=== PATIENT | female | born 1980 | race Caucasian/White ===

== ENCOUNTER 2020-01-20 10:53 | Emergency (ER) | payer OTHER, SELFPAY ==
--- NOTE | 2020-01-20 11:00 | ED.DENTAL ---
HPI - Dental/Oral General Chief complaint: Dental/Oral Stated complaint: Toothache/Swollen jaw Time Seen by Provider: 01/20/20 11:00 Source: patient and RN notes reviewed Mode of arrival: ambulatory Limitations: no limitations History of Present Illness HPI Narrative: 39-year-old female presents with concern for dental pain, jaw swelling. Reports history of dental caries, broken teeth. Reports dental pain for approximately 2 days, jaw swelling started yesterday. Reports she has a dental appointment on February 02. Denies foul taste in her mouth, fever, headache, sinus pain. MD Complaint: tooth pain Location: Tooth # (21) Related Data Allergies Allergy/AdvReac Type Severity Reaction Status Date / Time codeine Allergy Hives Verified 01/20/20 10:57 Review of Systems Review of Systems: Narrative: CONSTITUTIONAL: Denies malaise, chills, sweats, or fever. EYES: Denies visual changes, redness, or discharge. ENT: Denies rhinorrhea, congestion, sinus pain, otalgia or sore throat. Reports left lower dental pain, jaw swelling CARDIOVASCULAR: Denies chest pain, palpitations RESPIRATORY: Denies cough or dyspnea. SKIN: Denies rash or itching. MUSCULOSKELETAL: Denies myalgia. NEUROLOGIC: Denies headache. All systems reviewed & are unremarkable except as noted in HPI and below PMFSH Social History Social History Gender identity (if verbalized by the patient): Female Comments At time of signature, agree with nursing past medical, surgical, social and family history. There is no relevant family history pertinent to the presenting complaint Exam Narrative: Exam Narrative: GENERAL: Well-appearing, well-nourished, and in no acute distress. HEAD: Normocephalic, atraumatic. EYES: PERRLA, conjunctivae clear, and EOMI. No nystagmus. ENT: Nares clear. Mucous membranes moist. Oropharynx without erythema or lesions. No drooling NECK: Supple. CHEST: No respiratory distress. Clear to auscultation. No bony deformities, no asymmetry. Speaks in full sentences. HEART: Regular rate and rhythm. No murmur heard. SKIN: Warm, dry, no rash. NEURO: Alert and oriented x3. PSYCH: Normal mood and affect Course Course Emergency Course: Patient is aware of diagnosis, understands and agrees to treatment plan. Anticipatory guidance given. Patient agrees to follow-up as directed and is aware of reasons to seek care at the emergency department. Portions of this record may have been created with voice recognition software Vital Signs Vital signs: Vital Signs Temperature 97.7 F 01/20/20 11:07 Pulse Rate 91 01/20/20 11:07 Respiratory Rate 16 01/20/20 11:07 Blood Pressure 132/63 01/20/20 11:07 Pulse Oximetry 98 01/20/20 11:07 Temperature 97.7 F 01/20/20 11:07 Pulse Rate 91 01/20/20 11:07 Respiratory Rate 16 01/20/20 11:07 Blood Pressure 132/63 01/20/20 11:07 Pulse Oximetry 98 01/20/20 11:07 Reviewed. Patient reports history of hypertension MDM - Dental/Oral MDM Narrative Medical decision making narrative: Patients pain and complaint coupled with physical findings are consistant with dentalgia. There are no focal signs of space occupying lesions that are compromising to the airway; no dysphagia, odynophagia, dysphonia, or dyspnea. No uvular deviation or soft palate edema. Patient is non-toxic appearing. The floor of the mouth is soft with no signs of Robbie's Angina; no induration below mandible, no neck pain. Patient is without trismus or drooling and able to swallow secretions. Patient is felt appropriate for discharge home with dental follow up. Differential Diagnosis Differential diagnosis: Likely gingival abscess, dental caries, toothache, dental abscess and fracture of tooth Critical Care Time Critical Care Time Critical Care Time: No Discharge Plan Discharge Clinical Impression: Dental abscess Patient Disposition: Home, Self-Care Condition: Stable Instructions: Antibiotic Form, Dental Abscess
[2020-01-20 11:07] VITALS: BP 132/63; PULSE 91; RESP 16; TEMP 36.5; O2SAT 98
== END 2020-01-20 11:18 | disposition home or self-care (01) ==
PROVIDERS: Emergency Provider Nurse Practitioner
DX: K04.7 Periapical abscess without sinus (principal)
CPT/HCPCS: 99213; G0463

== ENCOUNTER 2022-07-23 18:37 | Emergency (ER) | payer OTHER, SELFPAY ==
[2022-07-23 18:49] VITALS: BP 128/69; PULSE 84; RESP 16; TEMP 36.1; O2SAT 100
--- NOTE | 2022-07-23 19:06 | ED.FEMALEGU ---
HPI - Female Genitourinary General Chief complaint: Urogenital-Female Stated complaint: Vaginal Problems Time Seen by Provider: 07/23/22 19:06 Source: patient, RN notes reviewed and old records reviewed Mode of arrival: ambulatory Limitations: no limitations History of Present Illness HPI Narrative: 41-year-old female presents to the [facility] with complaints of vaginal issues. Reports vaginal irritation, thick discharge. Denies any abdominal pain. No shortness of breath. Related Data Allergies Allergy/AdvReac Type Severity Reaction Status Date / Time codeine Allergy Hives Verified 07/23/22 19:13 Review of Systems Review of Systems: All systems reviewed & are unremarkable except as noted in HPI and below Constitutional: Constitutional: Reports no additional constitutional complaints, Denies chills and Denies fatigue Eyes: Eyes: Reports no additional eye complaints ENT: Reports system reviewed and no additional complaints, except as documented Cardiovascular: Cardiovascular: Reports no additional cardiovascular complaints Respiratory: Respiratory: Reports no additional respiratory complaints Gastrointestinal: Gastrointestinal: Reports no additional gastrointestinal complaints, Denies abdominal pain, Denies diarrhea, Denies nausea and Denies vomiting Genitourinary: Genitourinary: Reports as per HPI, Reports hematuria, Denies dysuria, Denies flank pain, Reports vaginal discharge, Reports vaginal odor and Reports vaginal pruritus Musculoskeletal: Musculoskeletal: Reports no additional musculoskeletal complaints and Denies back pain Integumentary/Breasts: Skin/Breast: Reports system reviewed and no additional complaints, except as docu Neurologic: Reports system reviewed and no additional complaints, except as documented Psychiatric: Psychiatric: Reports no additional psychiatric complaints Endocrine: Endocrine: Denies fatigue Allergic/Immunologic: Allergic/Immunologic: Reports no additional allergic/immunologic complaints PMFSH Social History Social History Gender identity (if verbalized by the patient): Female Comments At the time of my signature, I reviewed and agree with the nursing past medical, surgical, social, and family history. There is no relevant family history pertinent to the patient complaint. Exam Const: General: healthy appearing, no acute distress and alert Nutritional Appearance: well nourished Orientation/consciousness: patient oriented x3 Limitations: no limitations HENMT: Head: normal to inspection Eyes: Conjunctivae: conjunctivae normal Pupils: Equal, round and reactive pupils present Neck: Neck: normal visual inspection, no lymphadenopathy and no meningeal signs Chest: Chest palpation & inspection: normal inspection of the chest and abnormal inspection of the chest Resp: Effort & Inspection: normal respiratory effort Auscultation: clear to auscultation bilaterally Cardio: Rate: regular rate Rhythm: regular rhythm GI: GI Palp: Yes Soft to palpation and No Tenderness to palpation present (GI) : General: Yes no CVA tenderness External Female Exam: normal external appearance Speculum Exam - Vagina: erythematous, no lacerations and No vaginal bleeding Speculum Exam - Cervix: Cervical os closed, Abnormal cervical discharge present yellow and malodorous, no lesions and nontender Back/Spine/Pelvis: Back: no CVA tenderness Skin: General skin exam: normal color Rashes: no rashes Wounds: no wounds Neuro: General: patient oriented x3, moves all extremities, no meningeal signs and no focal motor deficits Cranial nerves: Yes Equal, round and reactive pupils present Speech: normal speech Gait exam (Neuro): Normal gait present Extrem: General: normal to inspection Psych: Mental Status: mental status grossly normal Affect: normal affect Attitude: cooperative Thought content: Yes Normal thought content present Judgement: Good judgement present (Psych) Course Course Shana
[2022-07-23] MEDS: cefTRIAXone 500 MG, LIDOCAINE HCL 1% LOCAL INJ 1 ML IM (19:42)
== END 2022-07-23 20:11 | disposition home or self-care (01) ==
PROVIDERS: Emergency Provider Nurse Practitioner
DX: Z20.2 Contact with and (suspected) exposure to infections with a predominantly sexual mode of transmission (principal)
CPT/HCPCS: 81003; 81025; 87070; 87491; 87591; 87661; 96372; 99214; G0463; J0696

== ENCOUNTER 2022-10-29 15:29 | Emergency (ER) | payer OTHER, SELFPAY ==
--- NOTE | ~2022-10-29 | XR_ITS ---
EXAM: XR knee LT min 4V DATE: 10/29/2022 16:21 HISTORY: KNEE PAIN, NO INJURY . COMPARISON: None available. FINDINGS: Normal mineralization. No fracture or dislocation. No lytic or blastic lesion. Moderate me dial and lateral joint space narrowing. Mild tricompartmental osteophytosis. Chondrocalcinosis. No er osion or periosteal change. Soft tissues within normal limits. Moderate volume joint fluid. IMPRESSION: Moderate tricompartmental arthritic changes of the knee. Moderate joint effusion. Reviewed, dictated and finalized at location K. [employer] HELPER IMPRESSION: Moderate tricompartmental arthritic changes of the knee. Moderate j oint effusion.
[2022-10-29 15:40] VITALS: BP 141/47; PULSE 83; RESP 12; TEMP 36.3; O2SAT 100
--- NOTE | 2022-10-29 15:49 | ED.LOWEXIN ---
HPI - Extremity Injury (Lower) General Chief Complaint: Extremity Injury, Lower Stated Complaint: Left Knee Pain Time Seen by Provider: 10/29/22 15:49 Source: patient, RN notes reviewed and old records reviewed Mode of arrival: ambulatory Limitations: no limitations History of Present Illness HPI Narrative: 42-year-old female presents to the [facility] complaints of left knee pain since yesterday. Unknown injury. States that she worked all night and woke up this morning with worsening pain. Bruise noted to the upper aspect of the anterior knee with minor amount of swelling. Pain with movement. Onset (ago): day(s) (1) Related Data Allergies Allergy/AdvReac Type Severity Reaction Status Date / Time codeine Allergy Hives Verified 10/29/22 15:46 Review of Systems Review of Systems: All systems reviewed & are unremarkable except as noted in HPI and below Constitutional: Constitutional: Reports no additional constitutional complaints Eyes: Eyes: Reports no additional eye complaints ENT: Reports system reviewed and no additional complaints, except as documented Cardiovascular: Cardiovascular: Reports no additional cardiovascular complaints, Denies chest pain and Denies dyspnea Respiratory: Respiratory: Reports no additional respiratory complaints, Denies chest congestion, Denies cough and Denies dyspnea Gastrointestinal: Gastrointestinal: Reports no additional gastrointestinal complaints, Denies abdominal pain, Denies nausea and Denies vomiting Musculoskeletal: Musculoskeletal: Reports as per HPI, Reports arthralgias and Reports joint swelling (Left knee) Integumentary/Breasts: Skin/Breast: Reports system reviewed and no additional complaints, except as docu Neurologic: Reports system reviewed and no additional complaints, except as documented Psychiatric: Psychiatric: Reports no additional psychiatric complaints Allergic/Immunologic: Allergic/Immunologic: Reports no additional allergic/immunologic complaints [facility] Social History Social History Gender identity (if verbalized by the patient): Female Comments At the time of my signature, I reviewed and agree with the nursing past medical, surgical, social, and family history. There is no relevant family history pertinent to the patient complaint. Exam Const: General: cooperative, healthy appearing, comfortable, no acute distress, well developed, alert, average body habitus and well nourished Nutritional Appearance: average body habitus and well nourished Orientation/consciousness: patient oriented x3 Limitations: no limitations HENMT: Head: normal to inspection Ears: hearing grossly normal bilaterally and external ears normal Face/Nose/Sinus: Normal external nose present, Normal nares present, Normal nasal mucous membranes and turbinates present and normal facial exam Face and sinus: normal facial exam Mouth: Yes Normal oral and palatal mucosa present, Yes lip normal and Yes moist mucous membranes Eyes: General: appearance normal, both eyes and all related structures Alignment and Position: alignment normal Periorbital: periorbital findings normal Conjunctivae: conjunctivae normal Pupils: Equal, round and reactive pupils present EOM: EOMs intact bilaterally Neck: Neck: normal visual inspection, full ROM, no lymphadenopathy and no meningeal signs Chest: Chest palpation & inspection: normal inspection of the chest Resp: Effort & Inspection: normal respiratory effort and able to speak in complete sentences Auscultation: clear to auscultation bilaterally, no crackles, no rales, no rhonchi and no wheezes Cardio: Rate: regular rate Rhythm: regular rhythm GI: Inspection: normal to inspection GI Palp: No abdominal tenderness Back/Spine/Pelvis: Cervical Spine: cervical ROM normal Thoracic/Lumbar Spine: No thoracic spinal tenderness Skin: General skin exam: normal color and no rashes or lesions noted Lesions
== END 2022-10-29 16:45 | disposition home or self-care (01) ==
PROVIDERS: Emergency Provider Nurse Practitioner
DX: M25.462 Effusion, left knee (principal); M17.12 Unilateral primary osteoarthritis, left knee; S80.02XA Contusion of left knee, initial encounter; X58.XXXA Exposure to other specified factors, initial encounter
CPT/HCPCS: 73564; 99213; G0463

== ENCOUNTER 2023-10-28 11:30 | Emergency (ER) | payer OTHER, SELFPAY ==
--- NOTE | 2023-10-28 11:37 | ED.DENTAL ---
HPI - Dental/Oral General Chief complaint: Dental/Oral Stated complaint: Dental Pain Time Seen by Provider: 10/28/23 11:37 Source: patient Mode of arrival: ambulatory Limitations: no limitations History of Present Illness HPI Narrative: Sabina is a 43-year-old female patient presenting to clinic today with complaints of dental pain to the bilateral lower posterior teeth. She reports the symptoms and for 2-3 days. She denies any fever chills. Reports that she has very poor dentition. Related Data Allergies Allergy/AdvReac Type Severity Reaction Status Date / Time codeine Allergy Hives Verified 10/29/22 15:46 Review of Systems Review of Systems: Pertinent positives per HPI. Patient denies any fever, chills, rash, headache, visual changes, dizziness, cough, shortness of breath, chest pain, palpitations, nausea, vomiting, diarrhea, constipation, abdominal pain, or any urinary issues. PMFSH Social History Social History Gender identity (if verbalized by the patient): Female Comments At the time of my signature, I reviewed and agree with the nursing past medical, surgical, social, and family history. There is no relevant family history pertinent to the patient complaint. Exam Narrative: General: Well-developed, well nourished, in no apparent distress Head: Normocephalic, atraumatic Eyes: Pupils equally round and reactive to light bilaterally, EOM intact, sclera and conjunctive clear, no discharge, lids normal Ears: TMs intact and clear, ear canals clear, no drainage, grossly hearing normal. Nose: Nares patent, no discharge, no inflammation, no sinus tenderness. Mouth: Oral pharynx without lesions or masses, poor dentition, MMM. Fracture bilateral lower molars with decay Neck: Supple, trachea midline, no enlargement of anterior or posterior cervical nodes, no thyroid masses or goiter palpable. Cardio: Regular rate and rhythm, s1 and s2 normal, no murmur appreciated. Resp: Clear to auscultation bilaterally, no rhonchi, rales, wheezing or rubs Course Course Emergency Course: Portions of this record may have been created with voice recognition software. Level of Care: Express Care Visit Vital Signs Vital signs: Vital signs reviewed MDM - Dental/Oral MDM Narrative Medical decision making narrative: At the time of visit patient is resting on the exam table. Patient has bilateral lower molar dental pain/decay. Amoxicillin and ibuprofen was sent to the pharmacy and supportive measures were discussed with the patient she voiced understanding discharge instructions and agrees to treatment plan. Differential Diagnosis Differential diagnosis: Likely gingival abscess, dental caries, toothache, dental abscess and fracture of tooth Discharge Plan Discharge Clinical Impression: Dental caries, Toothache Patient Disposition: Home, Self-Care Condition: Stable Instructions: Antibiotic Form, Toothache (ED) Additional Instructions: Take Tylenol/Motrin as needed for pain Take amoxicillin as prescribed May apply heat or cold packs to the affected area to help alleviate pain May apply Orajel to the affected area to help alleviate pain Follow-up with your dentist as soon as possible Prescriptions: New amoxicillin 875 mg tablet 875 mg PO Q12H 10 Days Qty: 20 0RF ibuprofen 800 mg tablet 800 mg PO TID PRN (Reason: pain) 10 Days Qty: 30 0RF Follow-up/Referrals: PHYSICIAN,RESIDENTIAL MORTGAGE UNDERWRITER [Primary Care Provider] - Time of Disposition: 11:43 Quality NIHSS Nursing Documentation ED NIHSS nursing documentation: reviewed/agree
[2023-10-28 11:41] VITALS: BP 142/74; PULSE 83; RESP 18; TEMP 37.1; O2SAT 100
== END 2023-10-28 11:57 | disposition home or self-care (01) ==
PROVIDERS: Emergency Provider Nurse Practitioner Family
DX: K02.7 Dental root caries (principal); K08.89 Other specified disorders of teeth and supporting structures
CPT/HCPCS: 99213; G0463

== ENCOUNTER 2024-03-07 11:52 | Emergency (ER) | payer SELFPAY ==
[2024-03-07 12:05] VITALS: BP 142/83; PULSE 87; RESP 16; TEMP 36.4; O2SAT 100
--- NOTE | 2024-03-07 12:06 | ED.SKABFB ---
HPI - Skin/Abscess/Foreign Bdy General Chief complaint: Skin/Abscess/Foreign Body Stated complaint: Left Hand Finger Pain Time Seen by Provider: 03/07/24 12:09 Source: patient, RN notes reviewed and old records reviewed Mode of arrival: ambulatory Limitations: no limitations History of Present Illness HPI narrative: 43 year old female who presents to [facility] care with complaints of possibly having a splinter in the middle knuckle of her 2nd finger left hand 2 weeks ago. Patient reports that she took a pair of tweezer and pulled it out but her finger remains sore. Patient reports that she has noted increased redness to the PIP joint of her left index finger with some increased redness towards the proximal aspect of finger. Patient states that she has noted some purulent drainage from the PIP joint area.Patient states that she has been cleansing her finger with peroxide and applying Neosporin ointment to area. Patient reports no known fevers chills or sweats. MD complaint: other (wound 2nd finger PIP area) Onset (ago): week(s) (2 weeks) Tetanus up to date: no Severity: moderate Treatments prior to arrival: other (Aleve) Related Data Allergies Allergy/AdvReac Type Severity Reaction Status Date / Time codeine Allergy Hives Verified 03/07/24 11:54 Review of Systems Review of Systems: CONSTITUTIONAL: Denies fever, chills, or sweats. CARDIOVASCULAR: Denies chest pain, palpitations, or edema. RESPIRATORY: Denies cough or dyspnea. GASTROINTESTINAL: Denies abdominal pain, nausea, vomiting SKIN: Reports redness and swelling, pain to index finger left hand. Reports purulent drainage from mid dorsal aspect of finger MUSCULOSKELETAL: Denies myalgia. NEUROLOGIC: Denies headache, numbness All systems reviewed & are unremarkable except as noted in HPI and below PMFSH Past Medical History Medical History Depression History of dental problems Surgical History Surgical History Tubal ligation status Social History Social History (Updated 03/07/24 @ 14:15 by Jessica Shen NP) Smoking status: Current every day smoker Gender identity (if verbalized by the patient): Female Comments At time of signature, agree with nursing past medical, surgical, social and family history. There is no relevant family history pertinent to the presenting complaint Exam Narrative: GENERAL: Well-appearing, well-nourished, and in no acute distress. HEAD: Normocephalic, atraumatic. EYES: PERRLA and EOMI. ENT: Nares clear, no rhinorrhea or epistaxis. Mucous membranes moist.TM's normal throat pink with no swelling NECK: Supple.no lymphadenopathy CHEST: Clear to auscultation. No respiratory distress.SAO2 100% on room air. HEART: Regular rate and rhythm. No murmur heard. Normal peripheral pulses. ABDOMEN: Soft, nontender, nondistended, normal active bowel sounds. EXTREMITIES: Normal range of motion. No edema. SKIN: Warm, dry. Erythema, induration, tenderness, warmth to mid aspect of dorsal 2nd finger left hand with no pustules noted, swelling noted to tissue. Patient is able to move finger,brisk capillary refill of nail bed. Some sloughing of tissue noted with no fluctuation of tissue noted or evidence of foreign body. NEURO: No focal deficits. Alert and oriented x3., Course Course Emergency Course: Patient is aware of diagnosis, understands and agrees to treatment plan. Anticipatory guidance given. Patient agrees to follow-up as directed and is aware of reasons to seek care at the emergency department. Portions of this record may have been created with voice recognition software Level of Care: Express Care Visit Vital Signs Vital signs: Vital Signs Temperature 36.4 C 03/07/24 12:05 Pulse Rate 87 03/07/24 12:05 Respiratory Rate 16 03/07/24 12:05 Blood Pressure 142/83 H 03/07/24 12:05 Pulse Oximetry 100 03/07/24 12:0
[2024-03-07] MEDS: TETANUS,DIPHTHERIA,AC PERTUSSIS ADULT (0.5 ML) BOOSTRIX IM (12:40)
== END 2024-03-07 12:40 | disposition home or self-care (01) ==
PROVIDERS: Emergency Provider Registered Nurse
DX: L02.512 Cutaneous abscess of left hand (principal); F17.200 Nicotine dependence, unspecified, uncomplicated; Z23 Encounter for immunization
CPT/HCPCS: 90471; 90715; 99213; G0463

== ENCOUNTER 2024-03-27 20:19 | Emergency (ER) | payer OTHER, MEDICAID, SELFPAY ==
--- NOTE | ~2024-03-27 | XR_ITS ---
EXAMINATION: XR chest 2V DATE: 03/27/2024 20:53 INDICATION: Shortness of breath. TECHNIQUE: Frontal and lateral views of the chest were obtained. COMPARISON: None. FINDINGS: There is no pneumonia, pleural effusion, or pneumothorax. The heart size is normal. IMPRESSION: 1. No acute cardiopulmonary disease. Reviewed, dictated and finalized at location E.
[2024-03-27 20:23] VITALS: BP 139/73; PULSE 95; RESP 16; TEMP 36.4; O2SAT 100
--- NOTE | 2024-03-27 22:17 | ECG_ITS ---
SEE SCANNED COPY FOR CONFIRMED REPORT MTDD
[2024-03-27 22:24] VITALS: PULSE 89; O2SAT 100
[2024-03-27] MEDS: IPRATROPIUM 0.5 MG/ALBUTEROL SULFATE 2.5 MG AMPUL.NEB 3 ML INHALATION (22:40)
[2024-03-27 22:41] VITALS: PULSE 76; RESP 20
[2024-03-27 22:45] VITALS: BP 122/76; PULSE 70; RESP 15; O2SAT 100
[2024-03-27 22:49] VITALS: PULSE 76; RESP 20
--- NOTE | 2024-03-27 23:34 | ED.GENADULT ---
HPI - General Adult General Chief complaint: Shortness of Breath/Dyspnea Stated complaint: shortness of breath Time Seen by Provider: 03/27/24 22:18 History of Present Illness HPI narrative: patient 43-year-old female presents emergency department with chief complaint shortness of breath. Patient reports that she was seeming some peña and started having problems breathing. Patient reports she has had a cough afterwards denies fever reports that she has may have a little bit of wheeze with this patient reports that is not improved by anything denies fever denies productive cough Related Data Allergies Allergy/AdvReac Type Severity Reaction Status Date / Time codeine Allergy Hives Verified 03/07/24 11:54 Review of Systems Review of Systems: A 10 system review of systems was completed on the patient and is negative except for what is stated in the HPI. Nursing and ancillary documentation was reviewed. [facility] Past Medical History Medical History Depression History of dental problems Surgical History Surgical History Tubal ligation status Social History Social History Smoking status: Current every day smoker Gender identity (if verbalized by the patient): Female Exam Narrative: GENERAL: Well-appearing, well-nourished, and in no acute distress. HEAD: Normocephalic, atraumatic. EYES: PERRLA and EOMI. ENT: Nares clear, no rhinorrhea or epistaxis. Mucous membranes moist. NECK: Supple. CHEST: Clear to auscultation. No respiratory distress. HEART: Regular rate and rhythm. No murmur heard. Normal peripheral pulses. ABDOMEN: Soft, nontender, nondistended, normal active bowel sounds. EXTREMITIES: Normal range of motion. No edema. SKIN: Warm, dry, no rash. NEURO: No focal deficits. Alert and oriented x3. PSYCH: Normal mood and affect. Course Vital Signs Vital signs: Vital Signs Temperature 36.4 C 03/27/24 20:23 Pulse Rate 95 03/27/24 20:23 Respiratory Rate 16 03/27/24 20:23 Blood Pressure 139/73 03/27/24 20:23 Pulse Oximetry 100 03/27/24 20:23 Oxygen Delivery Room Air 03/27/24 20:23 Temperature 36.4 C 03/27/24 20:23 Pulse Rate 76 03/27/24 22:49 Respiratory Rate 20 03/27/24 22:49 Blood Pressure 122/76 03/27/24 22:45 Pulse Oximetry 100 03/27/24 22:45 Oxygen Delivery Room Air 03/27/24 22:24 Medical Decision Making MDM Narrative Medical decision making narrative: differential diagnosis includes bronchitis, bronchospasm, pneumonia, EKG showed no acute ischemic changes chest x-ray showed no focal infiltrate patient feels better after receiving a nebulizer treatment. Patient with discharging the course prednisone and given an inhaler. Vital Signs Vital Signs: Vital Signs Temperature 36.4 C 03/27/24 20:23 Pulse Rate 95 03/27/24 20:23 Respiratory Rate 16 03/27/24 20:23 Blood Pressure 139/73 03/27/24 20:23 Pulse Oximetry 100 03/27/24 20:23 Oxygen Delivery Room Air 03/27/24 20:23 Temperature 36.4 C 03/27/24 20:23 Pulse Rate 76 03/27/24 22:49 Respiratory Rate 20 03/27/24 22:49 Blood Pressure 122/76 03/27/24 22:45 Pulse Oximetry 100 03/27/24 22:45 Oxygen Delivery Room Air 03/27/24 22:24 Discharge Plan Discharge Clinical Impression: Acute bronchitis with asthma Patient Disposition: Home, Self-Care Condition: Stable Instructions: Antibiotic Form, Acute Bronchitis (ED) Prescriptions: New prednisone 20 mg tablet 40 mg PO DAILY 5 Days Qty: 10 0RF albuterol sulfate 90 mcg/actuation HFA aerosol inhaler 2 puff inhalation QID PRN (Reason: shortness of breath or wheezing) Qty: 8.5 0RF No Action clindamycin HCl 300 mg capsule 300 mg PO Q8H Qty: 30 0RF mupirocin 2 % ointment
[2024-03-28] MEDS: predniSONE 20 MG TABLET 60 MG PO (00:02)
== END 2024-03-28 | disposition home or self-care (01) ==
PROVIDERS: Emergency Provider Emergency Medicine
DX: J20.9 Acute bronchitis, unspecified (principal); J45.909 Unspecified asthma, uncomplicated; F17.200 Nicotine dependence, unspecified, uncomplicated; R94.31 Abnormal electrocardiogram [ECG] [EKG]
CPT/HCPCS: 71046; 93005; 94640; 94664; 99283; J7512

== ENCOUNTER 2024-08-20 19:42 | Emergency (ER) | payer OTHER, MEDICAID, SELFPAY ==
--- NOTE | 2024-08-20 19:51 | ED.EXTPRO ---
HPI - Extremity Problem General Chief complaint: Extremity Problem,Nontraumatic Stated complaint: Right Foot Pain Time Seen by Provider: 08/20/24 19:51 Source: patient, RN notes reviewed and old records reviewed Mode of arrival: ambulatory Limitations: no limitations History of Present Illness HPI Narrative: 43 year old female presents to the [facility] with complaints of right ankle discomfort, bilateral ankle swelling. Patient denies any injury Patient denies any past medical or surgical history Patient states that the discomfort started several days ago. Had tried wearing different shoes, wearing an ankle brace. Swelling started a day or 2 ago. Has a blister to the right posterior leg where the brace she was wearing was rubbing against her leg Has some discoloration more concern for bruising versus cellulitic changes. Not hot to touch. Pitting edema, +2 bilateral ankle Related Data Home Medications Medication Instructions Recorded Confirmed No Home Medications 08/20/24 08/20/24 Allergies Allergy/AdvReac Type Severity Reaction Status Date / Time codeine Allergy Hives Verified 08/20/24 19:55 Review of Systems Review of Systems: All systems reviewed & are unremarkable except as noted in HPI and below Constitutional: Constitutional: Reports no additional constitutional complaints Eyes: Eyes: Reports no additional eye complaints ENT: Reports system reviewed and no additional complaints, except as documented Cardiovascular: Cardiovascular: Reports no additional cardiovascular complaints, Denies chest pain and Denies dyspnea Respiratory: Respiratory: Reports no additional respiratory complaints, Denies chest congestion, Denies cough and Denies dyspnea Gastrointestinal: Gastrointestinal: Reports no additional gastrointestinal complaints, Denies abdominal pain, Denies nausea and Denies vomiting Musculoskeletal: Musculoskeletal: Reports as per HPI, Reports arthralgias and Reports joint swelling Integumentary/Breasts: Skin/Breast: Reports system reviewed and no additional complaints, except as docu Neurologic: Reports system reviewed and no additional complaints, except as documented Psychiatric: Psychiatric: Reports no additional psychiatric complaints Allergic/Immunologic: Allergic/Immunologic: Reports no additional allergic/immunologic complaints PMFSH Past Medical History Medical History Depression History of dental problems Surgical History Surgical History Tubal ligation status Social History Social History Smoking status: Current every day smoker Gender identity (if verbalized by the patient): Female Comments At the time of my signature, I reviewed and agree with the nursing past medical, surgical, social, and family history. There is no relevant family history pertinent to the patient complaint. Exam Const: General: cooperative, no acute distress, well developed, alert, ill appearing chronically, uncomfortable and well nourished Nutritional Appearance: well nourished Orientation/consciousness: patient oriented x3 Limitations: no limitations HENMT: Head: normal to inspection Ears: hearing grossly normal bilaterally and external ears normal Face/Nose/Sinus: Normal external nose present, Normal nares present, Normal nasal mucous membranes and turbinates present, normal facial exam and face symmetric Face and sinus: normal facial exam and face symmetric Eyes: General: appearance normal, both eyes and all related structures Alignment and Position: alignment normal Periorbital: periorbital findings normal Neck: Neck: normal visual inspection, full ROM, no lymphadenopathy and no meningeal signs Chest: Chest palpation & inspection: normal inspection of the chest Resp: Effort & Inspection: normal respiratory effort and able to spe
[2024-08-20 19:55] VITALS: BP 140/75; PULSE 88; RESP 20; TEMP 36.6; O2SAT 100
== END 2024-08-20 20:17 | disposition home or self-care (01) ==
PROVIDERS: Emergency Provider Nurse Practitioner
DX: R60.9 Edema, unspecified (principal); F17.200 Nicotine dependence, unspecified, uncomplicated
CPT/HCPCS: 99211; G0463